=== PATIENT | male | born 1975 | race Caucasian/White ===

== ENCOUNTER 2018-03-14 23:35 | Emergency (ER) | payer MEDICAID ==
--- NOTE | 2018-03-15 00:59 | EDPHY ---
H & P Stated Complaint: L EYE VISUAL IMPAIRMENT X 2 DAYS,PANIC ATTACK Time Seen by Provider: 03/15/18 00:59 HPI/ROS: HPI CHIEF COMPLAINT: Intermittent left-sided headache. Left Eye "darker vision" HISTORY OF PRESENT ILLNESS: This is a 42-year-old male, otherwise healthy without any significant medical history does not take any daily medications presents emergency room with 10 days of intermittent left-sided posterior eye headache. Patient states over last 10 days he has had very frequent and intermittent headache behind left eye. He states over the past 2-3 days he developed darker vision is left eye. He states it is like looking through and tented glass. No loss of vision. No double vision, no curtain, no floaters, no arch you. He states he had a panic attack tonight. This prompted come to the emergency room. He denies any headache at all this time. Still complains of visual disturbance out of the left thigh. Past Medical History: Denies significant medical history Past Surgical History: Denies significant surgical history Social History: He denies drugs alcohol tobacco. Family History: Noncontributory ROS REVIEW OF SYSTEMS: 10 Systems were reviewed and negative with the exception of the elements mentioned in the history of present illness. Exam Constitutional triage nursing summary reviewed, vital signs reviewed, awake/ alert. Eyes normal conjunctivae and sclera, EOMI, PERRLA. Left eye: Extraocular movements intact, visual acuity reviewed and normal at triage. Posterior eye exam without dilatation unremarkable to me. Globe soft. Eye pressure checked. And normal. Pupil equal round react to light, no proptosis. Conjunctiva bilateral normal, pupils bilateral normal. Anterior chamber normal. Posterior eye exam without any acute abnormality without dilatation. Torsten-Pen was used for pressures in left eye. They are normal 11. Globe is soft. HENT normal inspection, atraumatic, moist mucus membranes, no epistaxis, neck supple/ no meningismus, no raccoon eyes. Respiratory clear to auscultation bilaterally, normal breath sounds, no respiratory distress, no wheezing. Cardiovascular rate normal, regular rhythm, no murmur, no edema, distal pulses normal. Gastrointestinal soft, non-tender, no rebound, no guarding, normal bowel sounds, no distension, no pulsatile mass. Genitourinary no CVA tenderness. Musculoskeletal no midline vertebral tenderness, full range of motion, no calf swelling, no tenderness of extremities, no meningismus, good pulses, neurovascularly intact. Skin pink, warm, & dry, no rash, skin atraumatic. Neurologic awake, alert and oriented x 3, AAOx3, moves all 4 extremities equally, motor intact, sensory intact, CN II-XII intact, normal cerebellar, normal vision, normal speech. Psychiatric normal mood/affect. Heme/Lymph/Immune no lymphadenopathy. Differential Diagnosis: Includes but is not limited to in a particular order ocular migraine, brain tumor, retinal detachment, vitreous hemorrhage, glaucoma Medical Decision Making: Plan for this patient eye exam here in emergency room , as well as CT scan head without contrast basic blood work and re-evaluate. Re-evaluation: CT scan head without contrast faxed me by Radiology at 2:07 a.m., negative for acute intracranial abnormality. 0426: Patient has a follow-up appoint with Ophthalmology on Friday at 5:00 p.m.. Additionally I did consult our tubing supervisor reviewed the case. Patient's blood work is unremarkable Patient CT scan head without contrast negative. 0453: I discussed this case in detail with Dr. Cazares. Agrees with current treatment plan and evaluation. Does recommend the patient follows up with Ophthalmology on outpatient basis. He will be glad to see the patient however the patient does have a scheduled follow-up ophthalmology appointment at 5:00 p.m. On Friday which I encouraged him to keep. Return precautions discussed with the patient Additionally discussed return precautions return emergency room if there is worsening symptoms worsening visual disturbance, worsening headache, not doing well. Patient comfortable this plan. Source: Patient - Personal History Current Tetanus Diphtheria and Acellular Pertussis (TDAP): No - Medical/Surgical History Hx Asthma: No Hx Chronic Respiratory Disease: No Hx Diabetes: No Hx Cardiac Disease: No Hx Renal Disease: No Hx Cirrhosis: No Hx Alcoholism: No Hx HIV/AIDS: No Hx Splenectomy or Spleen Trauma: No Other PMH: L PINKY FINGER SX METAL PLATE, - Social History Smoking Status: Never smoked Constitutional: Initial Vital Signs Temperature (C) 36.4 C 03/14/18 23:40 Heart Rate 95 03/14/18 23:40 Respiratory Rate 16 03/14/18 23:40 Blood Pressure 146/125 H 03/14/18 23:40 O2 Sat (%) 95 03/14/18 23:40 O2 Delivery Mode Room Air Allergies/Adverse Reactions: No Known Allergies Allergy (Unverified 03/14/18 23:39) Home Medications: Medication Instructions Recorded NK [No Known Home Meds] 03/14/18 Medical Decision Making - Data Points Laboratory Results: Laboratory Results 03/15/18 00:20 03/15/18 00:20 03/15/18 03/15/18 00:20 00:20 WBC 5.25 10^3/uL 10^3/uL (3.80-9.50) RBC 4.89 10^6/uL 10^6/uL (4.40-6.38) Hgb 14.8 g/dL g/dL (13.7-17.5) Hct 44.5 % % (40.0-51.0) MCV 91.0 fL fL (81.5-99.8) MCH 30.3 pg pg (27.9-34.1) MCHC 33.3 g/dL g/dL (32.4-36.7) RDW 12.7 % % (11.5-15.2) Plt Count 241 10^3/uL 10^3/uL (150-400) MPV 11.1 fL fL (8.7-11.7) Neut % (Auto) 58.2 % % (39.3-74.2) Lymph % (Auto) 28.4 % % (15.0-45.0) [place] % (Auto) 9.0 % % (4.5-13.0) Eos % (Auto) 3.0 % % (0.6-7.6) Baso % (Auto) 1.0 % % (0.3-1.7) Nucleat RBC Rel Count 0.0 % % (0.0-0.2) Absolute Neuts (auto) 3.06 10^3/uL 10^3/uL (1.70-6.50) Absolute Lymphs (auto) 1.49 10^3/uL 10^3/uL (1.00-3.00) Absolute Monos (auto) 0.47 10^3/uL 10^3/uL (0.30-0.80) Absolute Eos (auto) 0.16 10^3/uL 10^3/uL (0.03-0.40) Absolute Basos (auto) 0.05 10^3/uL 10^3/uL (0.02-0.10) Absolute Nucleated RBC 0.00 10^3/uL 10^3/uL (0-0.01) Immature Gran % 0.4 % % (0.0-1.1) Immature Gran # 0.02 10^3/uL 10^3/uL (0.00-0.10) Sodium 139 mEq/L mEq/L (135-145) Potassium 4.2 mEq/L mEq/L (3.5-5.2) Chloride 111 mEq/L H mEq/L (97-110) Carbon Dioxide 20 mEq/l L mEq/l (22-31) Anion Gap 8 mEq/L mEq/L (6-14) BUN 23 mg/dL mg/dL (7-23) Creatinine 1.0 mg/dL mg/dL (0.7-1.3) Estimated GFR > 60 Glucose 110 mg/dL H mg/dL (70-100) Calcium 9.0 mg/dL mg/dL (8.5-10.4) Medications Given: Discontinued Medications Sodium Chloride (Ns) 1,000 mls @ 0 mls/hr IV ONCE ONE PRN Reason: Wide Open Stop: 03/15/18 02:07 Last Admin: 03/15/18 02:21 Dose: 1,000 mls Departure - Departure Disposition: Home, Routine, Self-Care Clinical Impression: Vision blurred Condition: Good Instructions: Blurred Vision (ED) Additional Instructions: 1. Return emergency room if there is worsening symptoms. 2. Please follow up with Ophthalmology Referrals: NONE *PRIMARY CARE P,. [Primary Care Provider] - As per Instructions Raffaele Cazares MD [Medical Doctor] - As per Instructions
[2018-03-15] MEDS ORDERED: NS 1,000 ML IV ONE (02:06)
[2018-03-15] MEDS ORDERED: FLUORESCEIN SODIUM 1 MG STRIP OP ONE (02:11)
[2018-03-15] MEDS ORDERED: PROPARACAINE 0.5% 15 ML OPHT DROP ONE (02:11)
[2018-03-15 02:14] LABS: PLATELET COUNT 241 10^3/uL (150-400)
[2018-03-15 05:13] VITALS: BP 138/86
== END 2018-03-15 05:13 | disposition home or self-care (01) ==
DX: H53.8 Other visual disturbances (principal); R51 Headache